=== PATIENT | female | born 1980 | race American Indian/Alaskan Native ===

== ENCOUNTER 2022-01-21 11:35 | Outpatient (CLI) | payer OTHER ==
[2022-01-21 12:27] LABS: Basophils % (Auto) 0.3 % (0.0-1.8); Eosinophils % (Auto) 0.5 % (0.0-4.3); Hematocrit 45.7 % (30.3-42.9); Hemoglobin 15.1 gm/dl (10.1-14.3); Mean Corpuscular HGB Conc 33 % (30-34); Mean Corpuscular Volume 94 fl (79-97); Monocytes # (Auto) 0.3 K/mm3 (0.0-0.8); Platelet Count 152 K/mm3 (140-440); Red Blood Count 4.85 M/mm3 (3.65-5.03); Red Cell Distribution Width 14.2 % (13.2-15.2)
[2022-01-21 12:45] LABS: INR 0.92 (0.87-1.13)
[2022-01-21 12:46] LABS: Partial Thromboplastin Time 36.5 Sec. (24.2-36.6)
[2022-01-21 13:15] LABS: Iron 69 ug/dL (37-170); Total Iron Binding Capacity 352 mcg/dL (250-450)
--- NOTE | 2022-01-21 15:35 | XRay Report ---
CHEST 2 VIEWS INDICATION / CLINICAL INFORMATION: EXTERNAL DYSPNEA. COMPARISON: None available. FINDINGS: SUPPORT DEVICES: None. HEART / MEDIASTINUM: No significant abnormality. LUNGS / PLEURA: No significant pulmonary or pleural abnormality. No pneumothorax. ADDITIONAL FINDINGS: No significant additional findings. IMPRESSION: 1. No acute findings. Signer Name: Mohsen Rosenbaum Jr, MD Signed: 01/21/2022 3:31 PM Workstation Name: [id number]
[2022-01-23 12:42] LABS: Protein S, Free 104 % normal (50-147); Protein S, Total 108 % normal (70-140)
[2022-01-27 21:54] LABS: ANA Screen, IFA Negative (Negative)
== END 2022-01-21 11:36 | disposition home or self-care (01) ==
LOC: XRAY 11:35
PROVIDERS: ATTEND Internal Medicine Hematology & Oncology
DX: R06.00 Dyspnea, unspecified (principal); D68.69 Other thrombophilia
CPT/HCPCS: 36415; 71046; 82728; 83550; 84311; 85025; 85220; 85240; 85245; 85301; 85305; 85610; 85652; 85730; 86038

== ENCOUNTER 2022-02-18 13:31 | Outpatient (CLI) | payer OTHER ==
--- NOTE | 2022-02-18 15:23 | Ultrasound Report ---
ULTRASOUND PELVIS COMPLETE ULTRASOUND TRANSVAGINAL INDICATION / CLINICAL INFORMATION: D25.9, N93.9. History of uterine fibroid disease TECHNIQUE: Transabdominal and Transvaginal. Duplex Color Doppler used: Yes. COMPARISON: None available FINDINGS: UTERUS: Present. - Appearance (if present): Slightly heterogeneous - Size in cm (if present): 9.6 x 4.6 x 6.9. - Endometrial Complex (if present): No significant abnormality.. Thickness in cm (if measured) = 0.9 - Mass lesions: Multiple small fibroids are suspected. A 2.6 cm intramural fibroid is identified in t he right lateral wall. There are 2 intramural fibroids in the left lateral wall measuring 2.9 cm and 2.8 cm. Multiple smaller fibroids are also suspected. No large submucosal or exophytic fibroid. - Additional findings: None. RIGHT ADNEXA: No significant ovarian cyst or mass. Normal color Doppler blood flow. LEFT ADNEXA: No significant ovarian cyst or mass. Normal color Doppler blood flow. URINARY BLADDER: No significant abnormality. FREE FLUID: None. ADDITIONAL FINDINGS: None. IMPRESSION: Mild to moderate uterine fibroid disease. Unremarkable endometrium and ovaries. Signer Name: Mohsen Rosenbaum Jr, MD Signed: 02/18/2022 3:19 PM Workstation Name: [id number]
== END 2022-02-18 13:32 | disposition home or self-care (01) ==
LOC: US 13:31
DX: D25.9 Leiomyoma of uterus, unspecified (principal); N93.9 Abnormal uterine and vaginal bleeding, unspecified
CPT/HCPCS: 76830; 76856